=== PATIENT | female | born 1990 | race African-American/Black ===

== ENCOUNTER 2021-06-01 18:44 | Emergency (ER) | payer OTHER ==
[~2021-06-01 18:44] MED LIST: CYCLOBENZAPRINE5 MG PO; IBUPROFEN600 MG PO; K-DUR TAB 20 M20 MEQ PO; ZOFRAN4 MG PO
[2021-06-01 20:02] LABS: HEMOGLOBIN 11.6 gm/dl (12.3-15.3); RED BLOOD COUNT 4.23 M/UL (4.00-5.10); WHITE BLOOD COUNT 9.6 K/UL (4.5-11.0)
[2021-06-01 20:34] LABS: BUN/CREATININE RATIO 9 (0-10)
[2021-06-01] MEDS ORDERED: ONDANSETRON ODT4 MG SL (22:14)
[2021-06-01] MEDS ORDERED: K-TAB ER20 MEQ PO (22:14)
[2021-06-01] MEDS ORDERED: IMITREX50 MG PO (22:14)
== END 2021-06-01 22:23 | disposition home or self-care (01) ==
LOC: ER1 18:44
PROVIDERS: Physician Assistant
DX: E87.6 Hypokalemia (principal); R51.9 Headache, unspecified; F17.200 Nicotine dependence, unspecified, uncomplicated
CPT/HCPCS: 70496; 70498; 80053; 84703; 85025; 96372; 96374; 96375; 99283; J1200; J1885; J2765; J7030; Q9967